=== PATIENT | male | born 1965 | race Caucasian/White ===

== ENCOUNTER 2021-09-16 10:23 | Day surgery (SDC) | payer BC ==
[2021-09-16] MEDS ORDERED: Sodium Chloride 0.9% 10 ML Syringe FLUSH PRN (10:30)
[2021-09-16] MEDS ORDERED: Lactated Ringers 1,000 ML IV SCH (10:30)
[2021-09-16] MEDS ORDERED: Midazolam 1 MG/ML 2 ML SDV ONE (11:09)
[2021-09-16] MEDS ORDERED: Propofol 200 MG/20 ML SDV ONE (11:10)
--- NOTE | 2021-09-16 11:29 | PCM.PN ---
- General Info Date of Service: 09/16/21 - Review of Systems Systems Review Comment:: 55-year-old male presents for his initial screening colonoscopy. He denies any recent difficulty with bowel function. He also denies any known family history of colon cancer. His recent history and physical is reviewed and no significant changes are noted. On today's exam heart is regular and lungs are clear. I have discussed the proposed colonoscopy with the patient. Risks such as but not limited to bleeding and GI injury reviewed. He agrees to proceed. - Patient Data Vitals - Most Recent: Last Vital Signs Temp 97.3 F 09/16/21 10:37 Pulse 64 09/16/21 10:37 Resp 16 09/16/21 10:37 BP 126/78 09/16/21 10:37 Pulse Ox 96 09/16/21 10:37 Weight - Most Recent: 77.564 kg Med Orders - Current: Current Medications Lactated Ringer's (Ringers, Lactated) 1,000 mls @ 50 mls/hr IV ASDIRECTED [facility] Last Admin: 09/16/21 10:57 Dose: 50 mls/hr Documented by: Sodium Chloride (Sodium Chloride 0.9% 10 Ml Syringe) 10 ml FLUSH Q8HR PRN PRN Reason: keep vein open Discontinued Medications Midazolam HCl (Midazolam 1 Mg/Ml 2 Ml Sdv) Confirm Administered Dose 2 mg .ROUTE .STK-MED ONE Stop: 09/16/21 11:10 Propofol (Propofol 200 Mg/20 Ml Sdv) Confirm Administered Dose 400 mg .ROUTE .STK-MED ONE Stop: 09/16/21 11:11 - Exam General: Alert, Oriented Lungs: Clear to Auscultation, Normal Respiratory Effort Cardiovascular: Regular Rate, Regular Rhythm GI/Abdominal Exam: Soft Sepsis Event Note - Focused Exam Vital Signs: Vital Signs Temp Pulse Resp BP Pulse Ox 09/16/21 10:37 97.3 F 64 16 126/78 96 - Problem List Review Problem List Initiated/Reviewed/Updated: Yes - My Orders Last 24 Hours: My Active Orders 09/15/21 15:58 Resuscitation Status Routine 09/16/21 Breakfast Nothing Per Oral Diet [DIET] 09/16/21 10:30 Patient to Empty Bladder [RC] ASDIRECTED Peripheral IV Care [RC] . DIRECTED Lactated Ringers [Ringers, Lactated] 1,000 ml IV ASDIRECTED Sodium Chloride 0.9% [Saline Flush] 10 ml FLUSH Q8HR PRN Peripheral IV Insertion Adult [OM.PC] Routine 09/16/21 11:30 Verify Patient Consent Obtain [RC] ASDIRECTED - Assessment Assessment:: Colon cancer screening - Plan Plan:: Colonoscopy
--- NOTE | 2021-09-16 11:57 | PCM.OPNOTE ---
- General Post-Op/Procedure Note Date of Surgery/Procedure: 09/16/21 Operative Procedure(s): Colonoscopy with polypectomy Findings: 2 small sigmoid colon polyps Colon otherwise normal Pre Op Diagnosis: Colon cancer screening Post-Op Diagnosis: Colon polyps Anesthesia Technique: MAC Primary Surgeon: Ramsey Garcia Pathology: Colon polyps EBL in mLs: 0 Complications: None Condition: Good
--- NOTE | 2021-09-16 15:20 | OR ---
DATE OF SURGERY: 09/16/2021 SURGEON: Ramsey Garcia MD PREOPERATIVE DIAGNOSIS: Colon cancer screening. POSTOPERATIVE DIAGNOSIS: Colon polyps. OPERATION PERFORMED: Colonoscopy with polypectomy. INDICATIONS FOR SURGERY: This 55-year-old male presents today for his initial screening colonoscopy. FINDINGS: Two small polyps are noted in the sigmoid colon today. One at the 28 cm level and one at the 30 cm level from the anal verge. Each of these polyps are 4-5 mm in size. The colon and terminal ileum otherwise appear normal. DESCRIPTION OF PROCEDURE: The patient was taken to the operating room. He was given intravenous sedation, and with him in the left lateral decubitus position, digital rectal exam was performed showing no rectal masses. The Olympus colonoscope was inserted into the rectum. Retroflexed examination of the rectal canal was performed. The scope was then carefully advanced under direct visualization through the entire length of the colon until the cecum was reached. Cecal acquisition was confirmed by noting the normal internal cecal anatomy including the appendiceal orifice and the ileocecal valve. The light was also noted to transilluminate the abdominal wall in the right lower quadrant. The ileocecal valve was cannulated and the terminal ileum examined and appeared normal. The scope was then slowly withdrawn sequentially re- examining the colonic segments until the entire colon and rectum had been fully examined. During insertion and withdrawal of the scope, the above-described polyps were identified, and as encountered, these two polyps were removed with cautery snare and retrieved into a polyp trap. They will be submitted for pathology. After the exam had been completed and with no sign of any complication, the scope was removed and the patient was taken from the operating room in satisfactory condition. ESTIMATED BLOOD LOSS: 0. COMPLICATIONS: None. PROGNOSIS: Good. /[id number]/MODL
== END 2021-09-16 13:00 | disposition home or self-care (01) ==
LOC: KA.SDS 10:23
PROVIDERS: ATTEND Surgery
DX: Z12.11 Encounter for screening for malignant neoplasm of colon (principal); D12.5 Benign neoplasm of sigmoid colon; G43.909 Migraine, unspecified, not intractable, without status migrainosus; I38 Endocarditis, valve unspecified; M54.2 Cervicalgia; Z79.899 Other long term (current) drug therapy
CPT/HCPCS: 00812; J2250; J2704; J7120